=== PATIENT | female | born 1970 | race Asian ===

== ENCOUNTER 2020-06-06 20:43 | Emergency (ER) | payer OTHER ==
[~2020-06-06] VITALS: Ht 152.4 cm; Wt 63.5 kg
[2020-06-06 20:46] VITALS: BP 141/82
[2020-06-06 21:03] LABS: URINE BILIRUBIN NEGATIVE (Negative); URINE BLOOD 3+ (Negative); URINE CLARITY CLOUDY; URINE COLOR YELLOW; URINE GLUCOSE-RANDOM* NEGATIVE (Negative); URINE KETONES TRACE (Negative); URINE PROTEIN (DIPSTICK) 2+ (Negative)
[2020-06-06 21:04] LABS: URINE LEUKOCYTES-REFLEX 1+ (Negative); URINE NITRITE-REFLEX POSITIVE (Negative)
[2020-06-06] MEDS ORDERED: LEVOFLOXACIN250 MG PO (21:05)
[2020-06-06 21:10] LABS: SQUAMOUS 4-10 Moderate /LPF (0-3)
[2020-06-06 21:11] LABS: CASTS None Seen /LPF (None Seen); CRYSTALS None Seen /LPF (None Seen); URINE RBC >20 Many /HPF (0-2); URINE WBC-REFLEX 6-15 Few /HPF (0-5)
[2020-06-06] MEDS ORDERED: PYRIDIUM200 MG PO (21:29)
[2020-06-06] MEDS ORDERED: MACROBID 100 M100 M1 PO (21:29)
[2020-06-06] MEDS ORDERED: CIPROFLOXACIN500 M1 PO (21:36)
== END 2020-06-06 21:45 | disposition home or self-care (01) ==
LOC: ER 20:43
PROVIDERS: Emergency Medicine
DX: N39.0 Urinary tract infection, site not specified (principal); Z79.2 Long term (current) use of antibiotics